=== PATIENT | female | born 1975 | race Caucasian/White ===

== ENCOUNTER 2016-06-28 17:06 | Emergency (ER) | payer SELFPAY ==
[~2016-06-28 17:06] MED LIST: ALBUTEROL SULF8.5 GM IH; AMOX TR-K CLV 81 TAB; ASTELIN137 MCG NS; AZELASTINE137 MCG/01; BACTRIM DS TAB1 EAC2 PO; BENTYL10 M1 PO; CYCLOBENZAPRINE10 M1 PO; CYCLOBENZAPRINE5 M1 PO; CYMBALTA60 M1 PO; CYMBALTA60 MG PO; CYPROHEPTADINE H4 MG PO; DEPAKOTE500 MG PO; DIVALPROEX SOD500 M5 PO; EPIPEN 2-P0.3 MG/0.3 IJ; EPIPEN0.3 MG/0.1 IM; ESTRACE1 M1 PO; ESTRADIOL1 M1 PO; LEVBID0.375 MG PO; MIRALAX17 GM PO; NORCO 5/325 TAB1 TAB PO; OMEPRAZOLE20 M4 PO; PATADAY2.5 M1 OP; PATADAY2.5 ML BOTH EYES; PERCOCET 5-3251 EACH PO; PERCOCET 7.5/321 TA1 PO; PHENERGAN25 M1 PO; PHENERGAN25 M4 RC; PHENERGAN25 MG PO; PROAIR HFA8.5 GM IH; RELPAX40 M1 PO; RELPAX40 MG PO; SEROQUEL XR150 MG PO; SEROQUEL XR300 MG PO; SEROQUEL50 M1 PO; SINGULAIR10 MG PO; SYNTHROID100 MC1 PO; SYNTHROID100 MCG PO; SYNTHROID88 MCG PO; TOPAMAX25 M2 PO; TORADOL10 MG PO; TYLENOL #31 TAB PO; WELLBUTRIN XL300 M2 PO; WELLBUTRIN XL300 M3 PO; WELLBUTRIN XL300 MG PO; ZOFRAN ODT8 MG PO; ZOFRAN ODT8 MG/TAB PO; ZOFRAN4 MG PO; ZYRTEC10 M7 PO; ZYRTEC10 MG PO
[2016-09-19] MEDS ORDERED: MARINOL5 M1 PO (10:17)
[2016-09-19] MEDS ORDERED: DEPAKOTE ER500 M1 PO (10:45)
[2016-09-19] MEDS ORDERED: TRAZODONE HCL50 M1 PO (10:46)
[2016-09-19] MEDS ORDERED: ATIVAN0.5 M1 PO (10:46)
[2016-09-19] MEDS ORDERED: VRAYLAR3 MG (10:46)
== END 2016-06-28 18:20 | disposition left against medical advice (07) ==
LOC: EDMED 17:06
DX: Z53.21 Procedure and treatment not carried out due to patient leaving prior to being seen by health care provider (principal)